=== PATIENT | male | born 1960 | race Caucasian/White ===

== ENCOUNTER 2017-08-18 07:33 | Emergency (ER) | payer MEDICARE, OTHER ==
[~2017-08-18] VITALS: Ht 177.8 cm; Wt 86.2 kg
--- NOTE | 2017-08-18 07:33 | NUR ---
BILATERAL FOOT ULCERS ~ 4-5 MONTHS. NAD NOTED. PT AAO X4, AMB WITH STEADY GAIT. PENDING MD JONES.
[2017-08-18] MEDS ORDERED: ONDANSETRON HCL/PF 4 MG/2 ML VIAL ONE (08:19)
[2017-08-18] MEDS ORDERED: MORPHINE SULFATE INJ 4 MG/ML DISP.SYRIN ONE (08:20)
[2017-08-18 08:28] LABS: BASOPHILS % (AUTO) 0.6 % (0.0-2.0); EOSINOPHILS # (AUTO) 0.2 /CMM (0.0-0.7); EOSINOPHILS % (AUTO) 4.5 % (0.0-6.0); HEMATOCRIT 36 % (39-51); HEMOGLOBIN 11.9 g/dL (13.5-17.5); LYMPHOCYTES # (AUTO) 2.6 /CMM (0.8-4.8); LYMPHOCYTES % (AUTO) 48.3 % (20.0-44.0); MEAN CORPUSCULAR HEMOGLOBIN 27 PG (26.0-33.0); MEAN CORPUSCULAR HGB CONC 34 g/dl (31.0-36.0); MEAN CORPUSCULAR VOLUME 80 fL (80-96); MONOCYTES # (AUTO) 0.5 /CMM (0.1-1.30); MONOCYTES % (AUTO) 8.4 % (2.0-12.0); NEUTROPHILS # (AUTO) 2.1 /CMM (1.8-8.9); NEUTROPHILS % (AUTO) 38.2 % (43.0-81.0); PLATELET COUNT (AUTO) 183 /CMM (150-450); RDW COEFFICIENT OF VARIATION 16.8 (11.5-15.0); RED BLOOD CELL COUNT(AUTO) 4.44 MIL/uL (4.5-6.0); WHITE BLOOD COUNT (AUTO) 5.4 K/uL (4.3-11.0)
[2017-08-18] MEDS ORDERED: MORPHINE SULFATE INJ 2 MG/ML DISP.SYRIN IV ONE (08:30)
[2017-08-18] MEDS ORDERED: ONDANSETRON HCL/PF 4 MG/2 ML VIAL IVP ONE (08:30)
[2017-08-18] MEDS ORDERED: PIPERACILLIN /TAZOBACTAM 3.375 G in IV D5W 50 ML IV ONE (08:30)
[2017-08-18] MEDS ORDERED: IV NS 0.9% 1,000 ML BAG IV ONE (08:30)
[2017-08-18 08:44] LABS: ALANINE AMINOTRANSFERASE 70 U/L (12-78); ALBUMIN 3.8 g/dL (3.4-5.0); ALKALINE PHOSPHATASE 128 U/L (46-116); ASPARTATE AMINOTRANSFERASE 72 U/L (15-37); BILIRUBIN,DIRECT 0.2 mg/dL (0.0-0.2); BILIRUBIN,TOTAL 0.5 mg/dL (0.2-1.0); CARBON DIOXIDE 31 mmol/L (21-32); CHLORIDE 107 mmol/L (98-107); CREATININE 0.9 mg/dL (0.6-1.3); GLUCOSE 72 mg/dL (74-106); POTASSIUM 3.7 mmol/L (3.5-5.1); SODIUM SERUM 145 mmol/L (136-145); TOTAL PROTEIN, SERUM 8.4 g/dL (6.4-8.2); UREA NITROGEN, BLOOD 17 mg/dL (7-18)
[2017-08-18 08:46] LABS: TROPONIN I < 0.017 ng/mL (0.00-0.056)
[2017-08-18] MEDS ORDERED: CYCL10TA9 PO (09:01)
[2017-08-18] MEDS ORDERED: OXYC-164 PO (09:01)
--- NOTE | 2017-08-18 09:17 | NUR ---
ULTRASOUND AT BEDSIDE
[2017-08-18 10:07] LABS: APPEARANCE,URINE Clear (CLEAR); BILIRUBIN,URINE Negative (NEGATIVE); BLOOD, URINE Negative Ery/uL (NEGATIVE); COLOR,URINE Yellow (YELLOW); KETONES,URINE Negative (NEGATIVE); LEUKOCYTE ESTERASE ,URINE Negative (NEGATIVE); NITRITE, URINE Negative (NEGATIVE); PH,URINE 6.5 (5.0-8.0); PROTEIN,URINE Negative (NEGATIVE); UGLUCOSE Negative (NEGATIVE); UROBILINOGEN,URINE 0.2 EU/dL (0.2)
[2017-08-18 10:34] VITALS: BP 147/89
== END 2017-08-18 11:16 | disposition home or self-care (01) ==
LOC: ER 07:40
DX: I73.9 Peripheral vascular disease, unspecified (principal); L97.529 Non-pressure chronic ulcer of other part of left foot with unspecified severity; L97.519 Non-pressure chronic ulcer of other part of right foot with unspecified severity; Z98.890 Other specified postprocedural states
CPT/HCPCS: 36415; 71045-TC; 80048-TC; 80076-TC; 81000-TC; 83605-TC; 84484-TC; 85025-TC; 85730-TC; 87040-TC; 87086-TC; A4606; J2270; J2405; J2543; J7030; J7060; Z7610

== ENCOUNTER 2022-06-27 08:45 | Outpatient (CLI) | payer MEDICARE, OTHER ==
[~2022-06-27 08:45] MED LIST: CYCL10TA9 PO; OXYC1TAB12 PO
== END 2022-06-27 23:59 | disposition home or self-care (01) ==
LOC: WOU 08:45
PROVIDERS: ATTEND Surgery
DX: I87.313 Chronic venous hypertension (idiopathic) with ulcer of bilateral lower extremity (principal); L97.328 Non-pressure chronic ulcer of left ankle with other specified severity; L97.818 Non-pressure chronic ulcer of other part of right lower leg with other specified severity
CPT/HCPCS: G0463

== ENCOUNTER 2022-06-29 08:54 | Outpatient (CLI) | payer MEDICARE, OTHER ==
[2022-06-29 10:44] LABS: BILIRUBIN,URINE NEGATIVE (NEGATIVE); COLOR,URINE YELLOW (YELLOW); LEUKOCYTE ESTERASE ,URINE NEGATIVE (NEGATIVE); NITRITE, URINE NEGATIVE (NEGATIVE); PROTEIN,URINE NEGATIVE (NEGATIVE); UGLUCOSE NEGATIVE (NEGATIVE); UROBILINOGEN,URINE 0.2 EU/dL (0.2)
[2022-06-29 11:05] LABS: HEMATOCRIT 28 % (39-51); HEMOGLOBIN 8.8 g/dL (13.5-17.5); MEAN CORPUSCULAR HGB CONC 32 g/dl (31.0-36.0); MEAN CORPUSCULAR VOLUME 72 fL (80-96); PLATELET COUNT (AUTO) 252 K/uL (150-450); RED BLOOD CELL COUNT(AUTO) 3.87 MIL/uL (4.5-6.0); WHITE BLOOD COUNT (AUTO) 5.4 K/uL (4.3-11.0)
[2022-06-29 12:09] LABS: C-REACTIVE PROTEIN 0.2 mg/dL (0.0-0.9)
[2022-06-29 12:16] LABS: ALBUMIN 3.2 g/dL (3.4-5.0); BILIRUBIN,TOTAL 0.2 mg/dL (0.2-1.0); CALCIUM, SERUM 8.3 mg/dL (8.5-10.1); CREATININE 1.3 mg/dL (0.6-1.3); MAGNESIUM 2.1 mg/dL (1.8-2.4); PHOSPHORUS 3.4 mg/dL (2.5-4.9); POTASSIUM 3.3 mmol/L (3.5-5.1); TOTAL PROTEIN, SERUM 8.2 g/dL (6.4-8.2)
[2022-06-29 12:19] LABS: WBC,URINE 0-2 /HPF (0-3)
[2022-06-29 12:20] LABS: BACTERIA,URINE Few /HPF (None Seen); CALCIUM OXALATE CRYSTALS,UR Moderate /HPF (None Seen); SQUAMOUS EPITHELIAL CELL,UR Few /HPF (None Seen)
[2022-06-29 18:31] LABS: EOSINOPHILS % (MANUAL) 4 % (0-4); LYMPHOCYTES % (MANUAL) 28 % (16-48); MONOCYTES % (MANUAL) 2 % (0-11.0); NEUTROPHILS % (MANUAL) 66 (42-76)
== END 2022-06-29 23:59 | disposition home or self-care (01) ==
LOC: MSC 08:54
PROVIDERS: ATTEND Internal Medicine
DX: L97.929 Non-pressure chronic ulcer of unspecified part of left lower leg with unspecified severity (principal); L97.919 Non-pressure chronic ulcer of unspecified part of right lower leg with unspecified severity; I87.2 Venous insufficiency (chronic) (peripheral); Z86.718 Personal history of other venous thrombosis and embolism; I10 Essential (primary) hypertension; Z86.19 Personal history of other infectious and parasitic diseases; M43.22 Fusion of spine, cervical region; G89.4 Chronic pain syndrome; M40.209 Unspecified kyphosis, site unspecified; Z79.899 Other long term (current) drug therapy
CPT/HCPCS: 80061; 85025; 83540; 83735; 83036; 84100; 85652; 81001; 36415; 84439; 82746; 82607; 80053; 82728; 86140; 82306; 87522; 82043; 82570; 85007; G0463

== ENCOUNTER 2022-07-04 08:28 | Outpatient (CLI) | payer MEDICARE, OTHER ==
[2022-07-04] MEDS ORDERED: LIDOCAINE SOLN 4% 50 ML BOTTLE ONE (08:54)
== END 2022-07-04 23:59 | disposition home health service (06) ==
LOC: WOU 08:28
PROVIDERS: ATTEND Podiatrist Foot & Ankle Surgery
DX: I87.313 Chronic venous hypertension (idiopathic) with ulcer of bilateral lower extremity (principal); L97.328 Non-pressure chronic ulcer of left ankle with other specified severity; L97.312 Non-pressure chronic ulcer of right ankle with fat layer exposed
CPT/HCPCS: 11042; A6207

== ENCOUNTER 2022-07-06 08:50 | Outpatient (CLI) | payer MEDICARE, OTHER | END 2022-07-06 23:59 | disposition home or self-care (01) | LOC: MSC 08:50 | PROVIDERS: ATTEND Internal Medicine | DX: D50.9 Iron deficiency anemia, unspecified (principal); R31.9 Hematuria, unspecified; R74.8 Abnormal levels of other serum enzymes; E87.5 Hyperkalemia; M47.815 Spondylosis without myelopathy or radiculopathy, thoracolumbar region; M40.295 Other kyphosis, thoracolumbar region; G89.4 Chronic pain syndrome; M43.22 Fusion of spine, cervical region; I83.018 Varicose veins of right lower extremity with ulcer other part of lower leg; I83.028 Varicose veins of left lower extremity with ulcer other part of lower leg; L97.819 Non-pressure chronic ulcer of other part of right lower leg with unspecified severity; L97.829 Non-pressure chronic ulcer of other part of left lower leg with unspecified severity; I10 Essential (primary) hypertension; Z86.718 Personal history of other venous thrombosis and embolism; Z86.19 Personal history of other infectious and parasitic diseases; Z79.899 Other long term (current) drug therapy ==

== ENCOUNTER → 2022-07-07 | Outpatient (CLI) | payer MEDICARE, OTHER | END | disposition home or self-care (01) | LOC: MSC 13:45 | PROVIDERS: ATTEND Internal Medicine | DX: R74.8 Abnormal levels of other serum enzymes (principal); D50.9 Iron deficiency anemia, unspecified; R31.9 Hematuria, unspecified; E87.5 Hyperkalemia; G89.4 Chronic pain syndrome; M43.22 Fusion of spine, cervical region; M47.815 Spondylosis without myelopathy or radiculopathy, thoracolumbar region; M40.295 Other kyphosis, thoracolumbar region; I83.018 Varicose veins of right lower extremity with ulcer other part of lower leg; I83.028 Varicose veins of left lower extremity with ulcer other part of lower leg; I10 Essential (primary) hypertension; Z86.718 Personal history of other venous thrombosis and embolism; Z86.19 Personal history of other infectious and parasitic diseases; Z79.899 Other long term (current) drug therapy ==

== ENCOUNTER 2022-07-11 09:03 | Outpatient (CLI) | payer MEDICARE, OTHER | END 2022-07-11 23:59 | disposition home health service (06) | LOC: WOU 09:03 | PROVIDERS: ATTEND Podiatrist Foot & Ankle Surgery | DX: I87.313 Chronic venous hypertension (idiopathic) with ulcer of bilateral lower extremity (principal); L97.328 Non-pressure chronic ulcer of left ankle with other specified severity; L97.312 Non-pressure chronic ulcer of right ankle with fat layer exposed; I89.0 Lymphedema, not elsewhere classified; R60.1 Generalized edema | CPT/HCPCS: 11042 ==

== ENCOUNTER 2022-07-11 09:09 | Outpatient (CLI) | payer MEDICARE, OTHER | END 2022-07-11 23:59 | disposition home or self-care (01) | LOC: MSC 09:09 | PROVIDERS: ATTEND Anesthesiology | DX: G89.4 Chronic pain syndrome (principal); M54.12 Radiculopathy, cervical region; M43.22 Fusion of spine, cervical region; M54.16 Radiculopathy, lumbar region; M96.1 Postlaminectomy syndrome, not elsewhere classified; L97.521 Non-pressure chronic ulcer of other part of left foot limited to breakdown of skin; L97.511 Non-pressure chronic ulcer of other part of right foot limited to breakdown of skin; K74.60 Unspecified cirrhosis of liver; I10 Essential (primary) hypertension; I87.2 Venous insufficiency (chronic) (peripheral); J44.9 Chronic obstructive pulmonary disease, unspecified; Z74.09 Other reduced mobility; Z99.89 Dependence on other enabling machines and devices; Z79.891 Long term (current) use of opiate analgesic ==

== ENCOUNTER 2022-07-18 08:30 | Outpatient (CLI) | payer MEDICARE, OTHER | END 2022-07-18 23:59 | disposition home health service (06) | LOC: WOU 08:30 | PROVIDERS: ATTEND Podiatrist Foot & Ankle Surgery | DX: I87.313 Chronic venous hypertension (idiopathic) with ulcer of bilateral lower extremity (principal); L97.322 Non-pressure chronic ulcer of left ankle with fat layer exposed; L97.812 Non-pressure chronic ulcer of other part of right lower leg with fat layer exposed; I89.0 Lymphedema, not elsewhere classified; R60.1 Generalized edema | CPT/HCPCS: 11042 ==

== ENCOUNTER 2022-07-25 08:43 | Outpatient (CLI) | payer MEDICARE, OTHER ==
[2022-07-25] MEDS ORDERED: SILVER NITRATE APPLICATOR 1 EA BOX ONE (08:54)
[2022-07-25] MEDS ORDERED: HYDROCORTISONE 1% CREAM 28.35 GM TUBE TP ONE (09:04)
== END 2022-07-25 23:59 | disposition home health service (06) ==
LOC: WOU 08:43
PROVIDERS: ATTEND Podiatrist Foot & Ankle Surgery
DX: I87.313 Chronic venous hypertension (idiopathic) with ulcer of bilateral lower extremity (principal); L97.322 Non-pressure chronic ulcer of left ankle with fat layer exposed; L97.812 Non-pressure chronic ulcer of other part of right lower leg with fat layer exposed; I89.0 Lymphedema, not elsewhere classified
CPT/HCPCS: 11042

== ENCOUNTER 2022-07-28 09:36 | Outpatient (CLI) | payer MEDICARE, OTHER | END 2022-07-28 23:59 | disposition home health service (06) | LOC: WOU 09:36 | PROVIDERS: ATTEND Podiatrist Foot & Ankle Surgery | DX: I87.313 Chronic venous hypertension (idiopathic) with ulcer of bilateral lower extremity (principal); L97.322 Non-pressure chronic ulcer of left ankle with fat layer exposed; L97.812 Non-pressure chronic ulcer of other part of right lower leg with fat layer exposed; I89.0 Lymphedema, not elsewhere classified; R60.1 Generalized edema | CPT/HCPCS: 11042 ==

== ENCOUNTER 2022-08-01 09:20 | Outpatient (CLI) | payer MEDICARE, OTHER ==
[2022-08-01] MEDS ORDERED: LIDOCAINE SOLN 4% 50 ML BOTTLE ONE (09:41)
[2022-08-01] MEDS ORDERED: SILVER NITRATE APPLICATOR 1 EA BOX ONE (09:47)
== END 2022-08-01 23:59 | disposition home health service (06) ==
LOC: WOU 09:20
PROVIDERS: ATTEND Podiatrist Foot & Ankle Surgery
DX: I87.313 Chronic venous hypertension (idiopathic) with ulcer of bilateral lower extremity (principal); L97.322 Non-pressure chronic ulcer of left ankle with fat layer exposed; L97.812 Non-pressure chronic ulcer of other part of right lower leg with fat layer exposed; I89.0 Lymphedema, not elsewhere classified; R60.1 Generalized edema
CPT/HCPCS: 11042

== ENCOUNTER 2022-08-08 08:55 | Outpatient (CLI) | payer MEDICARE, OTHER ==
[2022-08-08] MEDS ORDERED: UREA 10% -AHA 4% CREAM 57 GM TUBE ONE (09:28)
== END 2022-08-08 23:59 | disposition home health service (06) ==
LOC: WOU 08:55
PROVIDERS: ATTEND Podiatrist Foot & Ankle Surgery
DX: I87.313 Chronic venous hypertension (idiopathic) with ulcer of bilateral lower extremity (principal); I89.0 Lymphedema, not elsewhere classified; R60.1 Generalized edema; L97.322 Non-pressure chronic ulcer of left ankle with fat layer exposed; L97.812 Non-pressure chronic ulcer of other part of right lower leg with fat layer exposed
CPT/HCPCS: 17250 ×2; A6207

== ENCOUNTER 2022-08-15 08:26 | Outpatient (CLI) | payer MEDICARE, OTHER | END 2022-08-15 23:59 | disposition home health service (06) | LOC: WOU 08:26 | PROVIDERS: ATTEND Podiatrist Foot & Ankle Surgery | DX: I87.313 Chronic venous hypertension (idiopathic) with ulcer of bilateral lower extremity (principal); L97.322 Non-pressure chronic ulcer of left ankle with fat layer exposed; L97.812 Non-pressure chronic ulcer of other part of right lower leg with fat layer exposed; I89.0 Lymphedema, not elsewhere classified; R60.1 Generalized edema | CPT/HCPCS: 11042; 11045; A6207 ==

== ENCOUNTER 2022-08-22 09:26 | Outpatient (CLI) | payer MEDICARE, OTHER ==
[~2022-08-22 09:26] MED LIST changes: +LIDOCAINE SOLN 4% 50 ML BOTTLE ONE
[2022-08-22] MEDS ORDERED: HYDROGEN PEROXIDE 480 ML BOTTLE ONE (09:56)
== END 2022-08-22 23:59 | disposition home health service (06) ==
LOC: WOU 09:26
PROVIDERS: ATTEND Podiatrist Foot & Ankle Surgery
DX: I87.313 Chronic venous hypertension (idiopathic) with ulcer of bilateral lower extremity (principal); L97.322 Non-pressure chronic ulcer of left ankle with fat layer exposed; L97.812 Non-pressure chronic ulcer of other part of right lower leg with fat layer exposed; I89.0 Lymphedema, not elsewhere classified; R60.1 Generalized edema
CPT/HCPCS: 11042; 11045; A6207

== ENCOUNTER 2022-08-29 09:53 | Outpatient (CLI) | payer MEDICARE, OTHER ==
[~2022-08-29 09:53] MED LIST changes: -LIDOCAINE SOLN 4% 50 ML BOTTLE ONE
== END 2022-08-29 23:59 | disposition home health service (06) ==
LOC: WOU 09:53
PROVIDERS: ATTEND Podiatrist Foot & Ankle Surgery
DX: I87.313 Chronic venous hypertension (idiopathic) with ulcer of bilateral lower extremity (principal); L97.322 Non-pressure chronic ulcer of left ankle with fat layer exposed; L97.812 Non-pressure chronic ulcer of other part of right lower leg with fat layer exposed; I89.0 Lymphedema, not elsewhere classified; B35.1 Tinea unguium; M79.675 Pain in left toe(s); M79.674 Pain in right toe(s); R60.1 Generalized edema
CPT/HCPCS: 15271; A6207; Q4103

== ENCOUNTER 2022-09-08 08:00 | Outpatient (CLI) | payer MEDICARE, OTHER ==
[2022-09-08] MEDS ORDERED: HYDROCORTISONE 1% CREAM 28.35 GM TUBE TP ONE (08:41)
== END 2022-09-08 23:59 | disposition home health service (06) ==
LOC: WOU 08:00
PROVIDERS: ATTEND Podiatrist Foot & Ankle Surgery
DX: I87.313 Chronic venous hypertension (idiopathic) with ulcer of bilateral lower extremity (principal); L97.812 Non-pressure chronic ulcer of other part of right lower leg with fat layer exposed; L97.322 Non-pressure chronic ulcer of left ankle with fat layer exposed; I89.0 Lymphedema, not elsewhere classified; B35.1 Tinea unguium; M79.675 Pain in left toe(s); M79.674 Pain in right toe(s)
CPT/HCPCS: 15271; A6207; Q4103

== ENCOUNTER 2022-09-15 08:20 | Outpatient (CLI) | payer MEDICARE, OTHER | END 2022-09-15 23:59 | disposition home health service (06) | LOC: WOU 08:20 | PROVIDERS: ATTEND Podiatrist Foot & Ankle Surgery | DX: I87.313 Chronic venous hypertension (idiopathic) with ulcer of bilateral lower extremity (principal); L97.322 Non-pressure chronic ulcer of left ankle with fat layer exposed; L97.812 Non-pressure chronic ulcer of other part of right lower leg with fat layer exposed; I89.0 Lymphedema, not elsewhere classified; R60.1 Generalized edema; M79.675 Pain in left toe(s); M79.674 Pain in right toe(s); B35.1 Tinea unguium | CPT/HCPCS: 15271; A6207; Q4103 ==

== ENCOUNTER 2022-09-26 15:22 | Outpatient (CLI) | payer MEDICARE, OTHER | END 2022-09-26 23:59 | disposition home health service (06) | LOC: WOU 15:22 | PROVIDERS: ATTEND Podiatrist Foot & Ankle Surgery | DX: I87.313 Chronic venous hypertension (idiopathic) with ulcer of bilateral lower extremity (principal); L97.322 Non-pressure chronic ulcer of left ankle with fat layer exposed; L97.812 Non-pressure chronic ulcer of other part of right lower leg with fat layer exposed; I89.0 Lymphedema, not elsewhere classified; B35.1 Tinea unguium; R60.1 Generalized edema; M79.675 Pain in left toe(s); M79.674 Pain in right toe(s) | CPT/HCPCS: 11042; 11045; A6210; A6207 ==

== ENCOUNTER 2022-10-03 10:16 | Outpatient (CLI) | payer MEDICARE, OTHER ==
[~2022-10-03 10:16] MED LIST changes: +LIDOCAINE SOLN 4% 50 ML BOTTLE ONE
[2022-10-03] MEDS ORDERED: TRIAMCINOLONE ACETONIDE 0.1% CR 15 GM TUBE TP ONE (10:30)
[2022-10-03] MEDS ORDERED: CLOTRIMAZOLE 1% 15 GM TUBE TP ONE (10:31)
== END 2022-10-03 23:59 | disposition home health service (06) ==
LOC: WOU 10:16
PROVIDERS: ATTEND Podiatrist Foot & Ankle Surgery
DX: I87.313 Chronic venous hypertension (idiopathic) with ulcer of bilateral lower extremity (principal); L97.322 Non-pressure chronic ulcer of left ankle with fat layer exposed; L97.522 Non-pressure chronic ulcer of other part of left foot with fat layer exposed; L97.512 Non-pressure chronic ulcer of other part of right foot with fat layer exposed; L97.812 Non-pressure chronic ulcer of other part of right lower leg with fat layer exposed; I89.0 Lymphedema, not elsewhere classified; B35.1 Tinea unguium; R60.1 Generalized edema; M79.675 Pain in left toe(s); M79.674 Pain in right toe(s)
CPT/HCPCS: 11042; 11045; A6210; A6207

== ENCOUNTER 2022-10-09 03:51 | Emergency (ER) | payer MEDICARE, OTHER ==
[~2022-10-09] VITALS: Ht 177.8 cm; Wt 79.4 kg
[~2022-10-09 03:51] MED LIST changes: -LIDOCAINE SOLN 4% 50 ML BOTTLE ONE
[2022-10-09 04:00] VITALS: BP 167/85
--- NOTE | 2022-10-09 04:00 | NUR ---
Bibselcorinna from home ble wound pain 05/01 ps. PT a/oX3. Tolerating R/A well with no resp distress. Safety measures in place.
[2022-10-09] MEDS ORDERED: LIDOCAINE 5% OINT 35.44 GM TUBE TP STA (04:12)
[2022-10-09] MEDS ORDERED: LIDOCAINE/PRILOCAINE (5GM) 5 GM TUBE TP ONE (04:17)
[2022-10-09] MEDS ORDERED: HYDROCODONE/APAP 10/325MG TABLET ONE (04:17)
[2022-10-09] MEDS ORDERED: KETOROLAC TROMETHAMINE INJ 30 MG/ML VIAL ONE (04:17)
--- NOTE | 2022-10-09 04:28 | NUR ---
WOUND CARE DONE
[2022-10-09] MEDS ORDERED: HYDROCODONE/APAP 10/325MG TABLET PO ONE (04:30)
[2022-10-09] MEDS ORDERED: KETOROLAC TROMETHAMINE INJ 60 MG/2 ML VIAL IM ONE (04:30)
[2022-10-09] MEDS ORDERED: TYL2T PO (04:57)
[2022-10-09] MEDS ORDERED: LIDO30CR47 TP (04:57)
--- NOTE | 2022-10-09 05:09 | NUR ---
Patient discharged to home in stable condition. RX Written and verbal after care instructions given. Patient verbalizes understanding of instruction.
[2022-10-09] MEDS ORDERED: HYDR-4277 PO (05:28)
== END 2022-10-09 04:00 | disposition home or self-care (01) ==
LOC: ER 03:55
DX: L97.529 Non-pressure chronic ulcer of other part of left foot with unspecified severity (principal); L97.519 Non-pressure chronic ulcer of other part of right foot with unspecified severity; Z79.899 Other long term (current) drug therapy
CPT/HCPCS: 99283; 96372; J1885

== ENCOUNTER → 2022-10-13 | Outpatient (CLI) | payer MEDICARE, OTHER ==
[~2022-10-13] MED LIST changes: +CLOTRIMAZOLE 1% 15 GM TUBE TP ONE; +HYDR-4277 PO; +LIDO30CR47 TP; +LIDOCAINE 2% JEL 5 ML TUBE ONE; +TRIAMCINOLONE ACETONIDE 0.1% CR 15 GM TUBE TP ONE; +TYL2T PO
== END | disposition home health service (06) ==
LOC: WOU 08:06
PROVIDERS: ATTEND Podiatrist Foot & Ankle Surgery
DX: I87.313 Chronic venous hypertension (idiopathic) with ulcer of bilateral lower extremity (principal); L97.322 Non-pressure chronic ulcer of left ankle with fat layer exposed; L97.522 Non-pressure chronic ulcer of other part of left foot with fat layer exposed; L97.512 Non-pressure chronic ulcer of other part of right foot with fat layer exposed; L97.812 Non-pressure chronic ulcer of other part of right lower leg with fat layer exposed; R60.1 Generalized edema; B35.1 Tinea unguium; M79.675 Pain in left toe(s); M79.674 Pain in right toe(s)
CPT/HCPCS: 11042; 11045; A6253; A6210; A6207

== ENCOUNTER 2022-10-17 09:00 | Outpatient (CLI) | payer MEDICARE, OTHER ==
[~2022-10-17 09:00] MED LIST changes: -CLOTRIMAZOLE 1% 15 GM TUBE TP ONE; -LIDOCAINE 2% JEL 5 ML TUBE ONE; -TRIAMCINOLONE ACETONIDE 0.1% CR 15 GM TUBE TP ONE
[2022-10-17] MEDS ORDERED: LIDOCAINE SOLN 4% 50 ML BOTTLE ONE (09:08)
[2022-10-17] MEDS ORDERED: CLOTRIMAZOLE 1% 15 GM TUBE TP ONE (09:47)
[2022-10-17] MEDS ORDERED: TRIAMCINOLONE ACETONIDE 0.1% CR 15 GM TUBE TP ONE (09:48)
[2022-10-17] MEDS ORDERED: UREA 10% -AHA 4% CREAM 57 GM TUBE ONE (10:15)
== END 2022-10-17 23:59 | disposition home health service (06) ==
LOC: WOU 09:00
PROVIDERS: ATTEND Podiatrist Foot & Ankle Surgery
DX: I87.313 Chronic venous hypertension (idiopathic) with ulcer of bilateral lower extremity (principal); L97.322 Non-pressure chronic ulcer of left ankle with fat layer exposed; L97.522 Non-pressure chronic ulcer of other part of left foot with fat layer exposed; L97.512 Non-pressure chronic ulcer of other part of right foot with fat layer exposed; L97.812 Non-pressure chronic ulcer of other part of right lower leg with fat layer exposed; I89.0 Lymphedema, not elsewhere classified; B35.1 Tinea unguium; M79.675 Pain in left toe(s); M79.674 Pain in right toe(s); R60.1 Generalized edema
CPT/HCPCS: 11042; 87070 ×2; 87075 ×2; 11045; 87102 ×2; A6207; A6210

== ENCOUNTER 2022-10-20 09:32 | Outpatient (CLI) | payer MEDICARE, OTHER ==
[~2022-10-20 09:32] MED LIST changes: +SILVER SULFADIAZINE CREAM 25 GM TUBE ONE; +UREA 10% -AHA 4% CREAM 57 GM TUBE ONE
== END 2022-10-20 23:59 | disposition home or self-care (01) ==
LOC: WOU 09:32
PROVIDERS: ATTEND Podiatrist Foot & Ankle Surgery
DX: I87.313 Chronic venous hypertension (idiopathic) with ulcer of bilateral lower extremity (principal); L97.322 Non-pressure chronic ulcer of left ankle with fat layer exposed; L97.522 Non-pressure chronic ulcer of other part of left foot with fat layer exposed; L97.512 Non-pressure chronic ulcer of other part of right foot with fat layer exposed; L97.812 Non-pressure chronic ulcer of other part of right lower leg with fat layer exposed; I89.0 Lymphedema, not elsewhere classified; B35.1 Tinea unguium; R60.1 Generalized edema; M79.675 Pain in left toe(s); M79.674 Pain in right toe(s)
CPT/HCPCS: 11042; A6253; A6210; A6207; 11045

== ENCOUNTER 2022-10-24 09:22 | Outpatient (CLI) | payer MEDICARE, OTHER ==
[~2022-10-24 09:22] MED LIST changes: -SILVER SULFADIAZINE CREAM 25 GM TUBE ONE; -UREA 10% -AHA 4% CREAM 57 GM TUBE ONE
== END 2022-10-24 23:59 | disposition home health service (06) ==
LOC: WOU 09:22
PROVIDERS: ATTEND Podiatrist Foot & Ankle Surgery
DX: I87.313 Chronic venous hypertension (idiopathic) with ulcer of bilateral lower extremity (principal); L97.322 Non-pressure chronic ulcer of left ankle with fat layer exposed; L97.522 Non-pressure chronic ulcer of other part of left foot with fat layer exposed; L97.512 Non-pressure chronic ulcer of other part of right foot with fat layer exposed; L97.812 Non-pressure chronic ulcer of other part of right lower leg with fat layer exposed; L03.115 Cellulitis of right lower limb; B95.62 Methicillin resistant Staphylococcus aureus infection as the cause of diseases classified elsewhere; I89.0 Lymphedema, not elsewhere classified; R60.1 Generalized edema; B35.1 Tinea unguium; M79.675 Pain in left toe(s); M79.674 Pain in right toe(s)
CPT/HCPCS: 11042; A6207

== ENCOUNTER 2022-10-27 10:36 | Outpatient (CLI) | payer MEDICARE, OTHER ==
[~2022-10-27 10:36] MED LIST changes: +SILVER SULFADIAZINE CREAM 25 GM TUBE ONE
== END 2022-10-27 23:59 | disposition home health service (06) ==
LOC: WOU 10:36
PROVIDERS: ATTEND Podiatrist Foot & Ankle Surgery
DX: I87.313 Chronic venous hypertension (idiopathic) with ulcer of bilateral lower extremity (principal); L97.322 Non-pressure chronic ulcer of left ankle with fat layer exposed; L97.522 Non-pressure chronic ulcer of other part of left foot with fat layer exposed; L97.512 Non-pressure chronic ulcer of other part of right foot with fat layer exposed; L97.812 Non-pressure chronic ulcer of other part of right lower leg with fat layer exposed; I89.0 Lymphedema, not elsewhere classified; L03.115 Cellulitis of right lower limb; R60.1 Generalized edema; B35.1 Tinea unguium; M79.675 Pain in left toe(s); M79.674 Pain in right toe(s)
CPT/HCPCS: 11042; A6207

== ENCOUNTER 2022-10-31 08:38 | Outpatient (CLI) | payer MEDICARE, OTHER ==
[~2022-10-31 08:38] MED LIST changes: -SILVER SULFADIAZINE CREAM 25 GM TUBE ONE
[2022-10-31] MEDS ORDERED: SILVER SULFADIAZINE CREAM 25 GM TUBE ONE (09:30)
== END 2022-10-31 23:59 | disposition home health service (06) ==
LOC: WOU 08:38
PROVIDERS: ATTEND Podiatrist Foot & Ankle Surgery
DX: I87.313 Chronic venous hypertension (idiopathic) with ulcer of bilateral lower extremity (principal); L97.322 Non-pressure chronic ulcer of left ankle with fat layer exposed; L97.522 Non-pressure chronic ulcer of other part of left foot with fat layer exposed; L97.512 Non-pressure chronic ulcer of other part of right foot with fat layer exposed; L97.812 Non-pressure chronic ulcer of other part of right lower leg with fat layer exposed; I89.0 Lymphedema, not elsewhere classified; B35.1 Tinea unguium; R60.1 Generalized edema; M79.675 Pain in left toe(s); M79.674 Pain in right toe(s)
CPT/HCPCS: 29581; A6210; A6207; 29580

== ENCOUNTER 2022-11-07 12:47 | Outpatient (CLI) | payer MEDICARE, OTHER ==
[~2022-11-07 12:47] MED LIST changes: +SILVER SULFADIAZINE CREAM 25 GM TUBE ONE
== END 2022-11-07 23:59 | disposition home health service (06) ==
LOC: WOU 12:47
PROVIDERS: ATTEND Podiatrist Foot & Ankle Surgery
DX: I87.313 Chronic venous hypertension (idiopathic) with ulcer of bilateral lower extremity (principal); L97.322 Non-pressure chronic ulcer of left ankle with fat layer exposed; L97.522 Non-pressure chronic ulcer of other part of left foot with fat layer exposed; L97.512 Non-pressure chronic ulcer of other part of right foot with fat layer exposed; L97.812 Non-pressure chronic ulcer of other part of right lower leg with fat layer exposed; I89.0 Lymphedema, not elsewhere classified; B35.1 Tinea unguium; M79.675 Pain in left toe(s); M79.674 Pain in right toe(s); R60.1 Generalized edema
CPT/HCPCS: 29581; A6253; A6210; A6207; 29580

== ENCOUNTER 2022-11-10 08:48 | Outpatient (CLI) | payer MEDICARE, OTHER ==
[~2022-11-10 08:48] MED LIST changes: -SILVER SULFADIAZINE CREAM 25 GM TUBE ONE
[2022-11-10] MEDS ORDERED: LIDOCAINE SOLN 4% 50 ML BOTTLE ONE (09:01)
[2022-11-10] MEDS ORDERED: CADEXOMER IODINE UD 5 GM TUBE ONE (11:41)
== END 2022-11-10 23:59 | disposition home health service (06) ==
LOC: WOU 08:48
PROVIDERS: ATTEND Podiatrist Foot & Ankle Surgery
DX: I87.313 Chronic venous hypertension (idiopathic) with ulcer of bilateral lower extremity (principal); L97.322 Non-pressure chronic ulcer of left ankle with fat layer exposed; L97.522 Non-pressure chronic ulcer of other part of left foot with fat layer exposed; L97.512 Non-pressure chronic ulcer of other part of right foot with fat layer exposed; L97.812 Non-pressure chronic ulcer of other part of right lower leg with fat layer exposed; I89.0 Lymphedema, not elsewhere classified; B35.1 Tinea unguium; R60.1 Generalized edema; M79.675 Pain in left toe(s); M79.674 Pain in right toe(s)
CPT/HCPCS: 29581; A6210; A6207; 29580

== ENCOUNTER 2022-11-14 08:59 | Outpatient (CLI) | payer MEDICARE, OTHER ==
[2022-11-14] MEDS ORDERED: UREA 10% -AHA 4% CREAM 57 GM TUBE ONE (09:34)
== END 2022-11-14 23:59 | disposition home health service (06) ==
LOC: WOU 08:59
PROVIDERS: ATTEND Podiatrist Foot & Ankle Surgery
DX: I87.313 Chronic venous hypertension (idiopathic) with ulcer of bilateral lower extremity (principal); L97.322 Non-pressure chronic ulcer of left ankle with fat layer exposed; L97.522 Non-pressure chronic ulcer of other part of left foot with fat layer exposed; L97.512 Non-pressure chronic ulcer of other part of right foot with fat layer exposed; L97.812 Non-pressure chronic ulcer of other part of right lower leg with fat layer exposed; I89.0 Lymphedema, not elsewhere classified; R60.1 Generalized edema; M79.675 Pain in left toe(s); M79.674 Pain in right toe(s); B35.1 Tinea unguium
CPT/HCPCS: 29581; 17250 ×2; A6253; A6207; 29580

== ENCOUNTER 2022-11-17 09:37 | Outpatient (CLI) | payer MEDICARE, OTHER | END 2022-11-17 23:59 | disposition home health service (06) | LOC: WOU 09:37 | PROVIDERS: ATTEND Podiatrist Foot & Ankle Surgery | DX: I87.313 Chronic venous hypertension (idiopathic) with ulcer of bilateral lower extremity (principal); L97.322 Non-pressure chronic ulcer of left ankle with fat layer exposed; L97.522 Non-pressure chronic ulcer of other part of left foot with fat layer exposed; L97.512 Non-pressure chronic ulcer of other part of right foot with fat layer exposed; L97.812 Non-pressure chronic ulcer of other part of right lower leg with fat layer exposed; I89.0 Lymphedema, not elsewhere classified; B35.1 Tinea unguium; M79.675 Pain in left toe(s); M79.674 Pain in right toe(s); R60.1 Generalized edema | CPT/HCPCS: 29581; 17250 ×2; A6253; A6207; 29580 ==

== ENCOUNTER 2022-11-21 08:29 | Outpatient (CLI) | payer MEDICARE, OTHER | END 2022-11-21 23:59 | disposition home health service (06) | LOC: WOU 08:29 | PROVIDERS: ATTEND Podiatrist Foot & Ankle Surgery | DX: I87.313 Chronic venous hypertension (idiopathic) with ulcer of bilateral lower extremity (principal); L97.322 Non-pressure chronic ulcer of left ankle with fat layer exposed; L97.522 Non-pressure chronic ulcer of other part of left foot with fat layer exposed; L97.512 Non-pressure chronic ulcer of other part of right foot with fat layer exposed; L97.812 Non-pressure chronic ulcer of other part of right lower leg with fat layer exposed; I89.0 Lymphedema, not elsewhere classified; B35.1 Tinea unguium; R60.1 Generalized edema; M79.675 Pain in left toe(s); M79.674 Pain in right toe(s) | CPT/HCPCS: 29581; 17250 ×2; A6207; 29580 ==

== ENCOUNTER 2022-11-24 08:55 | Outpatient (CLI) | payer MEDICARE, OTHER ==
[2022-11-24] MEDS ORDERED: LIDOCAINE 2% JEL 5 ML TUBE ONE (09:09)
== END 2022-11-24 23:59 | disposition home health service (06) ==
LOC: WOU 08:55
PROVIDERS: ATTEND Podiatrist Foot & Ankle Surgery
DX: I87.313 Chronic venous hypertension (idiopathic) with ulcer of bilateral lower extremity (principal); L97.322 Non-pressure chronic ulcer of left ankle with fat layer exposed; L97.522 Non-pressure chronic ulcer of other part of left foot with fat layer exposed; L97.512 Non-pressure chronic ulcer of other part of right foot with fat layer exposed; L97.812 Non-pressure chronic ulcer of other part of right lower leg with fat layer exposed; I89.0 Lymphedema, not elsewhere classified; B35.1 Tinea unguium; M79.675 Pain in left toe(s); M79.674 Pain in right toe(s)
CPT/HCPCS: 29581; 17250 ×2; A6253; A6207 ×2; 10060; 29580

== ENCOUNTER 2022-11-28 08:52 | Outpatient (CLI) | payer MEDICARE, OTHER ==
[2022-11-28] MEDS ORDERED: SILVER NITRATE APPLICATOR 1 EA BOX ONE (09:03)
[2022-11-28] MEDS ORDERED: UREA 10% -AHA 4% CREAM 57 GM TUBE ONE (09:10)
[2022-11-28] MEDS ORDERED: SILVER SULFADIAZINE CREAM 25 GM TUBE ONE (09:10)
== END 2022-11-28 23:59 | disposition home health service (06) ==
LOC: WOU 08:52
PROVIDERS: ATTEND Podiatrist Foot & Ankle Surgery
DX: I87.313 Chronic venous hypertension (idiopathic) with ulcer of bilateral lower extremity (principal); L97.522 Non-pressure chronic ulcer of other part of left foot with fat layer exposed; L97.512 Non-pressure chronic ulcer of other part of right foot with fat layer exposed; L97.322 Non-pressure chronic ulcer of left ankle with fat layer exposed; L97.812 Non-pressure chronic ulcer of other part of right lower leg with fat layer exposed; I89.0 Lymphedema, not elsewhere classified; R60.1 Generalized edema; B35.1 Tinea unguium; M79.675 Pain in left toe(s); M79.674 Pain in right toe(s)
CPT/HCPCS: 17250 ×2; A6253; A6207

== ENCOUNTER 2022-12-01 08:22 | Outpatient (CLI) | payer MEDICARE, OTHER ==
[2022-12-01] MEDS ORDERED: HYDROCORTISONE 1% CREAM 28.35 GM TUBE TP ONE (08:36)
== END 2022-12-01 23:59 | disposition home health service (06) ==
LOC: WOU 08:22
PROVIDERS: ATTEND Podiatrist Foot & Ankle Surgery
DX: I87.313 Chronic venous hypertension (idiopathic) with ulcer of bilateral lower extremity (principal); L97.322 Non-pressure chronic ulcer of left ankle with fat layer exposed; L97.522 Non-pressure chronic ulcer of other part of left foot with fat layer exposed; L97.512 Non-pressure chronic ulcer of other part of right foot with fat layer exposed; L97.812 Non-pressure chronic ulcer of other part of right lower leg with fat layer exposed; I89.0 Lymphedema, not elsewhere classified; R60.1 Generalized edema; M79.675 Pain in left toe(s); M79.674 Pain in right toe(s)
CPT/HCPCS: 29581; 17250; A6253; A6207; 29580

== ENCOUNTER 2022-12-05 08:51 | Outpatient (CLI) | payer MEDICARE, OTHER ==
[2022-12-05] MEDS ORDERED: SILVER NITRATE APPLICATOR 1 EA BOX ONE (09:12)
== END 2022-12-05 23:59 | disposition home health service (06) ==
LOC: WOU 08:51
PROVIDERS: ATTEND Podiatrist Foot & Ankle Surgery
DX: I87.313 Chronic venous hypertension (idiopathic) with ulcer of bilateral lower extremity (principal); L97.322 Non-pressure chronic ulcer of left ankle with fat layer exposed; L97.522 Non-pressure chronic ulcer of other part of left foot with fat layer exposed; L97.512 Non-pressure chronic ulcer of other part of right foot with fat layer exposed; L97.812 Non-pressure chronic ulcer of other part of right lower leg with fat layer exposed; R60.1 Generalized edema; M79.675 Pain in left toe(s); M79.674 Pain in right toe(s); B35.1 Tinea unguium
CPT/HCPCS: 17250 ×2; A6253; A6210; A6207

== ENCOUNTER 2022-12-08 08:27 | Outpatient (CLI) | payer MEDICARE, OTHER ==
[2022-12-08] MEDS ORDERED: CLOTRIMAZOLE 1% 15 GM TUBE TP ONE (09:07)
== END 2022-12-08 23:59 | disposition home health service (06) ==
LOC: WOU 08:27
PROVIDERS: ATTEND Podiatrist Foot & Ankle Surgery
DX: I87.313 Chronic venous hypertension (idiopathic) with ulcer of bilateral lower extremity (principal); L97.322 Non-pressure chronic ulcer of left ankle with fat layer exposed; L97.522 Non-pressure chronic ulcer of other part of left foot with fat layer exposed; L97.512 Non-pressure chronic ulcer of other part of right foot with fat layer exposed; L97.812 Non-pressure chronic ulcer of other part of right lower leg with fat layer exposed; I89.0 Lymphedema, not elsewhere classified; R60.1 Generalized edema; M79.675 Pain in left toe(s); M79.674 Pain in right toe(s)
CPT/HCPCS: 29581; A6253; A6207; A4649 ×3; 29580

== ENCOUNTER 2022-12-12 08:58 | Outpatient (CLI) | payer MEDICARE, OTHER ==
[~2022-12-12 08:58] MED LIST changes: +LIDOCAINE SOLN 4% 50 ML BOTTLE ONE
== END 2022-12-12 23:59 | disposition home health service (06) ==
LOC: WOU 08:58
PROVIDERS: ATTEND Podiatrist Foot & Ankle Surgery
DX: I87.313 Chronic venous hypertension (idiopathic) with ulcer of bilateral lower extremity (principal); L97.322 Non-pressure chronic ulcer of left ankle with fat layer exposed; L97.522 Non-pressure chronic ulcer of other part of left foot with fat layer exposed; L97.512 Non-pressure chronic ulcer of other part of right foot with fat layer exposed; L97.812 Non-pressure chronic ulcer of other part of right lower leg with fat layer exposed; I89.0 Lymphedema, not elsewhere classified; B35.1 Tinea unguium; R60.1 Generalized edema; M79.675 Pain in left toe(s); M79.674 Pain in right toe(s)
CPT/HCPCS: 29581; A6253; A6207; A4649; 29580

== ENCOUNTER 2022-12-15 08:39 | Outpatient (CLI) | payer MEDICARE, OTHER ==
[~2022-12-15 08:39] MED LIST changes: -LIDOCAINE SOLN 4% 50 ML BOTTLE ONE
== END 2022-12-15 23:59 | disposition home health service (06) ==
LOC: WOU 08:39
PROVIDERS: ATTEND Podiatrist Foot & Ankle Surgery
DX: I87.313 Chronic venous hypertension (idiopathic) with ulcer of bilateral lower extremity (principal); L97.322 Non-pressure chronic ulcer of left ankle with fat layer exposed; L97.522 Non-pressure chronic ulcer of other part of left foot with fat layer exposed; L97.512 Non-pressure chronic ulcer of other part of right foot with fat layer exposed; L97.812 Non-pressure chronic ulcer of other part of right lower leg with fat layer exposed; I89.0 Lymphedema, not elsewhere classified; B35.1 Tinea unguium; R60.1 Generalized edema; M79.675 Pain in left toe(s); M79.674 Pain in right toe(s)
CPT/HCPCS: 29581; A6253; A6207; A4649; 29580

== ENCOUNTER 2022-12-19 08:20 | Outpatient (CLI) | payer MEDICARE, OTHER | END 2022-12-19 23:59 | disposition home health service (06) | LOC: WOU 08:20 | PROVIDERS: ATTEND Podiatrist Foot & Ankle Surgery | DX: I87.313 Chronic venous hypertension (idiopathic) with ulcer of bilateral lower extremity (principal); L97.322 Non-pressure chronic ulcer of left ankle with fat layer exposed; L97.522 Non-pressure chronic ulcer of other part of left foot with fat layer exposed; L97.512 Non-pressure chronic ulcer of other part of right foot with fat layer exposed; L97.812 Non-pressure chronic ulcer of other part of right lower leg with fat layer exposed; I89.0 Lymphedema, not elsewhere classified; B35.1 Tinea unguium; R60.1 Generalized edema; M79.675 Pain in left toe(s); M79.674 Pain in right toe(s) | CPT/HCPCS: 29581; A6253; A6207; A4649; 29580 ==

== ENCOUNTER 2022-12-22 09:21 | Outpatient (CLI) | payer MEDICARE, OTHER | END 2022-12-22 23:59 | disposition home health service (06) | LOC: WOU 09:21 | PROVIDERS: ATTEND Podiatrist Foot & Ankle Surgery | DX: I87.313 Chronic venous hypertension (idiopathic) with ulcer of bilateral lower extremity (principal); L97.322 Non-pressure chronic ulcer of left ankle with fat layer exposed; L97.522 Non-pressure chronic ulcer of other part of left foot with fat layer exposed; L97.512 Non-pressure chronic ulcer of other part of right foot with fat layer exposed; L97.812 Non-pressure chronic ulcer of other part of right lower leg with fat layer exposed | CPT/HCPCS: 29581; A6253; A6207; A4649; 29580 ==

== ENCOUNTER 2022-12-26 10:35 | Outpatient (CLI) | payer MEDICARE, OTHER | END 2022-12-26 23:59 | disposition home health service (06) | LOC: WOU 10:35 | PROVIDERS: ATTEND Podiatrist Foot & Ankle Surgery | DX: I87.313 Chronic venous hypertension (idiopathic) with ulcer of bilateral lower extremity (principal); L97.322 Non-pressure chronic ulcer of left ankle with fat layer exposed; L97.522 Non-pressure chronic ulcer of other part of left foot with fat layer exposed; L97.512 Non-pressure chronic ulcer of other part of right foot with fat layer exposed; L97.812 Non-pressure chronic ulcer of other part of right lower leg with fat layer exposed; I89.0 Lymphedema, not elsewhere classified; R60.1 Generalized edema; B35.1 Tinea unguium; M79.675 Pain in left toe(s); M79.674 Pain in right toe(s) | CPT/HCPCS: 29581; A4649; 10060; 29580 ==

== ENCOUNTER 2022-12-29 13:05 | Outpatient (CLI) | payer MEDICARE, OTHER ==
[2022-12-29] MEDS ORDERED: LIDOCAINE 2% JEL 5 ML TUBE ONE (13:21)
== END 2022-12-29 23:59 | disposition home health service (06) ==
LOC: WOU 13:05
PROVIDERS: ATTEND Podiatrist Foot & Ankle Surgery
DX: I87.313 Chronic venous hypertension (idiopathic) with ulcer of bilateral lower extremity (principal); L97.322 Non-pressure chronic ulcer of left ankle with fat layer exposed; L97.522 Non-pressure chronic ulcer of other part of left foot with fat layer exposed; L97.512 Non-pressure chronic ulcer of other part of right foot with fat layer exposed; L97.812 Non-pressure chronic ulcer of other part of right lower leg with fat layer exposed; I89.0 Lymphedema, not elsewhere classified; B35.1 Tinea unguium; M79.675 Pain in left toe(s); M79.674 Pain in right toe(s); R60.1 Generalized edema; I10 Essential (primary) hypertension
CPT/HCPCS: 29581; A4649 ×2; A6253; A6207 ×2; 29580

== ENCOUNTER 2023-01-02 09:37 | Outpatient (CLI) | payer MEDICARE, OTHER | END 2023-01-02 23:59 | disposition home health service (06) | LOC: WOU 09:37 | PROVIDERS: ATTEND Podiatrist Foot & Ankle Surgery | DX: I87.313 Chronic venous hypertension (idiopathic) with ulcer of bilateral lower extremity (principal); L97.322 Non-pressure chronic ulcer of left ankle with fat layer exposed; L97.522 Non-pressure chronic ulcer of other part of left foot with fat layer exposed; L97.512 Non-pressure chronic ulcer of other part of right foot with fat layer exposed; L97.812 Non-pressure chronic ulcer of other part of right lower leg with fat layer exposed; I89.0 Lymphedema, not elsewhere classified; R60.1 Generalized edema; B35.1 Tinea unguium; M79.675 Pain in left toe(s); M79.674 Pain in right toe(s) | CPT/HCPCS: 29581; 87070; 87075; A6207; A4649; 29580 ==

== ENCOUNTER 2023-01-05 09:09 | Outpatient (CLI) | payer MEDICARE, OTHER | END 2023-01-05 23:59 | disposition home health service (06) | LOC: WOU 09:09 | PROVIDERS: ATTEND Podiatrist Foot & Ankle Surgery | DX: I87.313 Chronic venous hypertension (idiopathic) with ulcer of bilateral lower extremity (principal); L97.322 Non-pressure chronic ulcer of left ankle with fat layer exposed; L97.522 Non-pressure chronic ulcer of other part of left foot with fat layer exposed; L97.512 Non-pressure chronic ulcer of other part of right foot with fat layer exposed; L97.812 Non-pressure chronic ulcer of other part of right lower leg with fat layer exposed; L03.116 Cellulitis of left lower limb; L03.115 Cellulitis of right lower limb; B95.61 Methicillin susceptible Staphylococcus aureus infection as the cause of diseases classified elsewhere; I89.0 Lymphedema, not elsewhere classified; R60.1 Generalized edema; B35.1 Tinea unguium; M79.675 Pain in left toe(s); M79.674 Pain in right toe(s) | CPT/HCPCS: 29581; A6253; 29580; A4649; A6207 ==

== ENCOUNTER 2023-02-13 09:38 | Outpatient (CLI) | payer MEDICARE, OTHER ==
[2023-02-13 11:13] LABS: BILIRUBIN,URINE NEGATIVE (NEGATIVE); COLOR,URINE YELLOW (YELLOW); LEUKOCYTE ESTERASE ,URINE NEGATIVE (NEGATIVE); NITRITE, URINE NEGATIVE (NEGATIVE); PROTEIN,URINE NEGATIVE (NEGATIVE); UGLUCOSE NEGATIVE (NEGATIVE); UROBILINOGEN,URINE 0.2 EU/dL (0.2)
[2023-02-13 11:16] LABS: BASOPHILS % (AUTO) 1.1 % (0.0-2.0); EOSINOPHILS % (AUTO) 4.9 % (0.0-6.0); HEMATOCRIT 26 % (39-51); HEMOGLOBIN 7.6 g/dL (13.5-17.5); LYMPHOCYTES # (AUTO) 1.7 K/uL (0.8-4.8); LYMPHOCYTES % (AUTO) 43.2 % (20.0-44.0); MEAN CORPUSCULAR HGB CONC 30 g/dl (31.0-36.0); MEAN CORPUSCULAR VOLUME 60 fL (80-96); MONOCYTES # (AUTO) 0.5 K/uL (0.1-1.30); MONOCYTES % (AUTO) 13.1 % (2.0-12.0); NEUTROPHILS # (AUTO) 1.5 K/uL (1.8-8.9); NEUTROPHILS % (AUTO) 37.7 % (43.0-81.0); PLATELET COUNT (AUTO) 248 K/uL (150-450); RED BLOOD CELL COUNT(AUTO) 4.28 MIL/uL (4.5-6.0)
[2023-02-13 11:42] LABS: BACTERIA,URINE Rare /HPF (None Seen); SQUAMOUS EPITHELIAL CELL,UR Few /HPF (None Seen); WBC,URINE 0-2 /HPF (0-3)
[2023-02-13 12:05] LABS: IRON, SERUM 17 ug/dl (50-175); TOTAL IRON BINDING CAPACITY 428 ug/dl (250-450)
[2023-02-13 12:29] LABS: C-REACTIVE PROTEIN < 0.2 mg/dL (0.0-0.9); CHOLESTEROL 90 mg/dL (<200); FERRITIN 19 ng/mL (8-388); HDL CHOLESTEROL 42 mg/dL (40-60); LDL 41 mg/dL (0-99); PROSTATE SPECIFIC ANTIGEN SCR 0.29 ng/mL (0.00-4.00); THYROID STIMULATING HORMONE 1.829 uIU/mL (0.358-3.74); TRIGLYCERIDES 40 mg/dL (30-150)
[2023-02-13 12:41] LABS: ALBUMIN 3.1 g/dL (3.4-5.0); ALKALINE PHOSPHATASE 94 U/L (46-116); ASPARTATE AMINOTRANSFERASE 95 U/L (15-37); BILIRUBIN,TOTAL 0.4 mg/dL (0.2-1.0); CALCIUM, SERUM 9.2 mg/dL (8.5-10.1); CARBON DIOXIDE 25 mmol/L (21-32); CHLORIDE 105 mmol/L (98-107); CREATININE 0.9 mg/dL (0.6-1.3); GLUCOSE 94 mg/dL (74-106); MAGNESIUM 1.9 mg/dL (1.8-2.4); PHOSPHORUS 2.5 mg/dL (2.5-4.9); POTASSIUM 3.6 mmol/L (3.5-5.1); SODIUM SERUM 141 mmol/L (136-145); TOTAL PROTEIN, SERUM 8.3 g/dL (6.4-8.2); UREA NITROGEN, BLOOD 28 mg/dL (7-18)
[2023-02-13 12:51] LABS: ALANINE AMINOTRANSFERASE 65 U/L (12-78)
[2023-02-14 12:12] LABS: *SPE A/G RATIO 0.7 (0.7-1.7); *SPE ALPHA-1-GLOBULIN 0.2 g/dL (0.0-0.4); *SPE ALPHA-2-GLOBULIN 0.6 g/dL (0.4-1.0); *SPE BETA GLOBULIN 1.2 g/dL (0.7-1.3); *SPE M-SPIKE Not Observed g/dL (Not Observed)
== END 2023-02-13 23:59 | disposition home or self-care (01) ==
LOC: MSC 09:38
PROVIDERS: ATTEND Internal Medicine
DX: D50.9 Iron deficiency anemia, unspecified (principal); R74.8 Abnormal levels of other serum enzymes; G89.4 Chronic pain syndrome; M43.22 Fusion of spine, cervical region; M40.299 Other kyphosis, site unspecified; I87.313 Chronic venous hypertension (idiopathic) with ulcer of bilateral lower extremity; L97.819 Non-pressure chronic ulcer of other part of right lower leg with unspecified severity; L97.829 Non-pressure chronic ulcer of other part of left lower leg with unspecified severity; R31.29 Other microscopic hematuria; I10 Essential (primary) hypertension; E87.6 Hypokalemia; Z86.19 Personal history of other infectious and parasitic diseases; Z79.899 Other long term (current) drug therapy
CPT/HCPCS: 80061; 85025; 83540; 83735; 83036; 84100; 84153; 85652; 81001; 36415; 84439; 82746; 84443; 82607; 80053; 82728; 86140; 83883; 82306; 83970; 87522; 82043; 82570; 84165; 84155; 84156 ×2; G0463

== ENCOUNTER 2023-03-09 08:17 | Outpatient (CLI) | payer MEDICARE, OTHER ==
[2023-03-09] MEDS ORDERED: HYDROCORTISONE 1% CREAM 28.35 GM TUBE TP ONE (09:14)
== END 2023-03-09 23:59 | disposition home health service (06) ==
LOC: WOU 08:17
PROVIDERS: ATTEND Podiatrist Foot & Ankle Surgery
DX: I87.313 Chronic venous hypertension (idiopathic) with ulcer of bilateral lower extremity (principal); R60.1 Generalized edema; I89.0 Lymphedema, not elsewhere classified; L84 Corns and callosities; B35.1 Tinea unguium; G89.4 Chronic pain syndrome; Z79.891 Long term (current) use of opiate analgesic; I10 Essential (primary) hypertension; Z85.830 Personal history of malignant neoplasm of bone; M79.674 Pain in right toe(s); M79.675 Pain in left toe(s); L60.2 Onychogryphosis
CPT/HCPCS: 11721; 29580; A6207